=== PATIENT | female | born 1990 | race Caucasian/White ===

== ENCOUNTER 2018-02-14 15:37 | Emergency (ER) | payer MEDICAID ==
[2018-02-14 15:55] VITALS: BP 120/76
--- NOTE | 2018-02-14 16:14 | ER Document Report ---
HPI - HPI Patient complains to provider of: Back injury Onset: This morning Onset/Duration: Sudden Pain Level: 4 Context: 27-year-old female was using a 15 pound kettle bowen at the gym and the technology trainer told her she did something wrong body she was coming up and she heard and felt a pop in her low back. She states that her legs went numb for a few seconds. She has no vital anesthesia. No radiculopathy at this time. She did show me a x-ray report that showed a 4 cm mass posterior to the cervix that she has a CAT scan for tomorrow. She is tearful about this diagnosis and her doctor's office and are here to the emergency room to get her back evaluated today. Past Medical History - General Information source: Patient - Social History Smoking Status: Never Smoker Frequency of alcohol use: None Drug Abuse: None Lives with: Family Family History: Reviewed & Not Pertinent - Medical History Medical History: Negative Surgical Hx: Negative Vertical Provider Document - CONSTITUTIONAL Agree With Documented VS: Yes Exam Limitations: No Limitations - INFECTION CONTROL TRAVEL OUTSIDE OF THE [place] IN LAST 30 DAYS: No - NECK Neck: Supple - RESPIRATORY Respiratory: Breath Sounds Normal, No Respiratory Distress - CARDIOVASCULAR Cardiovascular: Regular Rate, Regular Rhythm - GI/ABDOMEN Gastrointestinal: Abdomen Soft, Abdomen Non-Tender - BACK Back: Normal Inspection Notes: Tender midline at the lumbosacral junction. - MUSCULOSKELETAL/EXTREMETIES Musculoskeletal/Extremeties: MAEW, FROM, Tender - NEURO Level of Consciousness: Awake, Alert Deep Tendon Reflexes: 2+ - Bilateral ankle and patellar - DERM Integumentary: No Rash Course - Re-evaluation Re-evalutation: 02/14/18 17:51 X-ray is negative and will treat the patient with Motrin. She is having her CT scan tomorrow for the pelvic mass. - Vital Signs Vital signs: Temp Pulse Resp BP Pulse Ox 98.5 F 98 16 120/76 100 02/14/18 15:53 02/14/18 15:53 02/14/18 15:53 02/14/18 15:53 02/14/18 15:53 Discharge - Discharge Clinical Impression: Lumbosacral back strain Condition: Good Disposition: HOME, SELF-CARE Instructions: Low Back Pain ([facility]), Warm Packs ([facility]), Ibuprofen (General) ([facility]) , Acetaminophen Additional Instructions: Warm compress Tylenol Motrin Follow-up with your doctor if symptoms persist No more using the kettle bowen at the gym until you are back is pain-free Return to the emergency room any worsening of the symptoms Prescriptions: Ibuprofen [Motrin 800 mg Tablet] 800 mg PO Q8HP PRN #30 tablet PRN Reason: Referrals: VALENTINA GARCIA MD [Primary Care Provider] - Follow up as needed
--- NOTE | 2018-02-14 17:38 | RADIOLOGY REPORT (SQ) ---
EXAM DESCRIPTION: L SPINE WHOLE COMPLETED DATE/TIME: 02/14/2018 5:02 pm REASON FOR STUDY: popped back COMPARISON: None. NUMBER OF VIEWS: Five views including obliques. TECHNIQUE: AP, lateral, oblique, and sacral radiographic images acquired of the lumbar spine. LIMITATIONS: None. FINDINGS: MINERALIZATION: Normal. SEGMENTATION: Normal. No transitional anatomy. ALIGNMENT: Normal. VERTEBRAE: Maintained height. No fracture or worrisome bone lesion. DISCS: Preserved height. No significant osteophytes or end plate irregularity. POSTERIOR ELEMENTS: Pedicles and facets are intact. No pars defect or posterior arch defects. HARDWARE: None in the spine. PARASPINAL SOFT TISSUES: Normal. PELVIS: Intact as visualized. No fractures or worrisome bone lesions. SI joints intact. OTHER: No other significant finding. IMPRESSION: NORMAL 5 VIEW LUMBAR SPINE. TECHNICAL DOCUMENTATION: JOB ID: [id number] [employer]- All Rights Reserved Reading location - IP/workstation name: [email or web address]
== END 2018-02-14 18:10 | disposition home or self-care (01) ==
LOC: ER 15:37 → EDBD 15:37 → ER 18:10
DX: S39.012A Strain of muscle, fascia and tendon of lower back, initial encounter (principal); X58.XXXA Exposure to other specified factors, initial encounter; N88.9 Noninflammatory disorder of cervix uteri, unspecified
CPT/HCPCS: 72110; 99283

== ENCOUNTER 2019-02-12 23:52 | Emergency (ER) | payer MEDICAID ==
[2019-02-13 00:07] VITALS: BP 135/92
== END 2019-02-13 00:15 | disposition left against medical advice (07) ==
LOC: ER 23:52
DX: Z53.21 Procedure and treatment not carried out due to patient leaving prior to being seen by health care provider (principal)